=== PATIENT | female | born 1940 | race Caucasian/White ===

== ENCOUNTER 2021-07-18 11:12 | Emergency (ER) | payer MEDICARE, SELFPAY ==
[2021-07-18 11:23] VITALS: BP 121/68; PULSE 83; RESP 16; TEMP 36.3; O2SAT 97; BMI 23.3
--- NOTE | 2021-07-18 11:28 | DI.RAD.S_ITS ---
PROCEDURE: XR KNEE RT 3V INDICATIONS: fall, knee pain and swelling TECHNIQUE: 3 views of the knee were acquired. COMPARISON: [facility], MR, MR KNEE RT W CON, 11/04/2015, 15:31. [facility], CR, XR KNEE 1 OR 2VW RT, 04/01/2016, 9:28. [facility], CR, XR KNEE ARTHRITIC SERIES BI, 10/22/2015, 13:50. FINDINGS: Bones: Medial ann arthroplasty hardware can be seen. There is lucency seen adjacent to both the femoral and tibial component of this arthroplasty hardware, which is best seen laterally. Soft tissues: There is a small to moderate joint effusion. No suspicious soft tissue calcifications. 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 No acute fracture can be seen on these plain films. Dictated by: Kishan Ma M.D. on 07/18/2021 at 10:58 Approved by: Kishan Ma M.D. on 07/18/2021 at 11:01
--- NOTE | 2021-07-18 12:55 | ED_ITS ---
HPI - Extremity Injury (Lower) <Davidson Prater PA-C - Last Filed: 07/18/21 19:26> General Chief Complaint: Extremity Injury, Lower Stated Complaint: right knee pain Time Seen by Provider: 07/18/21 12:00 History of Present Illness HPI Narrative: Patient is a 72-year-old female presenting to the emergency department today for an evaluation of right knee pain. Patient states that she was walking yesterday when her dog ran into her right knee causing the knee to become hyper extended. She explains that she fell but did not hit her head or lose consciousness and denies pain elsewhere. The patient explains that she was able to get up and continue walking but she notes that the pain continued to worsen gradually throughout the day. She explains that her pain has worsened slightly today. Of note, patient had a right medial hemiarthroplasty performed approximately [address] Ruffin at [facility]. Patient states that she has been taking Aleve for the pain and applying ice pack to the right knee, but she notes minimal improvement in her discomfort. She denies chills, fever, chest pain, shortness of breath, cough, abdominal pain, nausea, vomiting, diarrhea, dysuria, back pain, or numbness and tingling throughout the bilateral lower extremities. No other concerns voiced at this time. Related Data Allergies Allergy/AdvReac Type Severity Reaction Status Date / Time azithromycin [From ZITHROMAX] Allergy Unknown Unverified 12/01/17 12:34 codeine [CODEINE] Allergy Unknown Unverified 12/01/17 12:34 Review of Systems <Davidson Prater PA-C - Last Filed: 07/18/21 19:26> Constitutional Constitutional: Denies chills, Denies fatigue, Denies fever(s), Denies frequent falls, Denies lethargy and Denies weakness Eyes Eyes: Denies loss of vision ENT Ears, Nose, Mouth, and Throat: Denies dizziness and Denies neck pain Cardiovascular Cardiovascular: Denies chest pain, Denies irregular heart rhythm, Denies l ightheadedness, Denies palpitations, Denies dyspnea, Denies dyspnea on exertion and Denies orthopnea Respiratory Respiratory: Denies cough, Denies dyspnea, Denies dyspnea on exertion and Denies wheezing Gastrointestinal Gastrointestinal: Denies abdominal pain, Denies change in bowel habits, Denies diarrhea, Denies nausea and Denies vomiting Genitourinary Genitourinary: Denies hematuria, Denies flank pain, Denies urinary incontinence and Denies urinary urgency Musculoskeletal Musculoskeletal: Denies back pain, Reports arthralgias (Right knee), Reports joint swelling (Right knee), Denies muscle weakness, Denies neck pain, Denies numbness and Denies tingling Neurologic Neurologic: Denies behavioral changes, Denies confusion, Denies dizziness, Denie s frequent falls, Denies loss of vision, Denies numbness, Denies tingling and Denies weakness Psychiatric Psychiatric: Denies behavioral changes and Denies confusion Endocrine Endocrine: Denies fatigue and Denies palpitations Allergic/Immunologic Allergic/Immunologic: Denies wheezing Exam <Davidson Prater PA-C - Last Filed: 07/18/21 19:26> Narrative Exam Narrative: GENERAL: 80 year old patient appears stated age. Well-developed patient, in no acute distress. HEAD: Atraumatic. Normocephalic. EYES: Pupils equal round and reactive. Extraocular motions intact. No scleral icterus. No injection or drainage. ENT: Nose without bleeding, purulent drainage. Throat without erythema, tonsillar hypertrophy or exudate. Airway patent. NECK: Trachea midline. Non tender CARDIOVASCULAR: Regular rate and rhythm without murmurs, gallops, or rubs. RESPIRATORY: Clear to auscultation. Breath sounds equal bilaterally. No wheezes, rales, or rhonchi. GASTROINTESTINAL: Abdomen soft, non-tender, nondistended. EXTREMITIES: Swelling along the medial aspect of the knee weight. No significant erythema or warmth appreciated over the right knee. Tenderness to palpation appreciated throughout the medial aspect of the right knee extending distally into the proximal tibia. No significant ecchymosis or deformity noted. No appreciable significant joint laxity. BACK: Nontender without deformity or crepitance. No flank tenderness. NEURO: AOx3. SKIN: No rash or erythema of visible areas Initial Vital Signs Initial Vital Signs: Vital Signs Temperature 97.4 F L 07/18/21 11:23 Pulse Rate 83 07/18/21 11:23 Respiratory Rate 16 07/18/21 11:23 Blood Pressure 121/68 07/18/21 11:23 Pulse Oximetry 97 07/18/21 11:23 Cardio Pulses: dorsalis pedis present bilaterally <DO Macie Kamara Last Filed: 07/19/21 07:14> Initial Vital Signs Initial Vital Signs: Vital Signs Temperature 97.4 F L 07/18/21 11:23 Pulse Rate 83 07/18/21 11:23 Respiratory Rate 16 07/18/21 11:23 Blood Pressure 121/68 07/18/21 11:23 Pulse Oximetry 97 07/18/21 11:23 Course <JEAN MARIE Rico Last Filed: 07/18/21 19:26> Course Course Narrative: Right knee x-ray obtained Orders Ordered: ED Orders 07/18/21 11:28 XR knee RT 3V Stat Vital Signs Vital signs: Vital Signs - 8 hr 07/18/21 11:23 Temperature 97.4 F L Pulse Rate 83 Respiratory Rate 16 Blood Pressure 121/68 Pulse Oximetry 97 <Rafita Clifton DO - Last Filed: 07/19/21 07:14> Orders Ordered: ED Orders 07/18/21 11:28 XR knee RT 3V Stat Vital Signs Vital signs: Vital Signs - 8 hr 07/18/21 11:23 Temperature 97.4 F L Pulse Rate 83 Respiratory Rate 16 Blood Pressure 121/68 Pulse Oximetry 97 MDM - Extremity Injury (Lower) <JEAN MARIE Rico Last Filed: 07/18/21 19:26> Imaging Data Extremity x-ray #1: Radiologist's Impression: PROCEDURE:? XR KNEE RT 3V ? INDICATIONS:? fall, knee pain and swelling ? TECHNIQUE:? 3 views of the knee were acquired.? ? COMPARISON:? [facility], MR, MR KNEE RT W CON, 11/04/2015, 15:31.? [facility], CR, XR KNEE 1 OR 2VW RT, 04/01/2016, 9:28.? [facility], CR, XR KNEE ARTHRITIC SERIES BI, 10/22/2015, 13:50. ? FINDINGS:? ? Bones:? Medial ann arthroplasty hardware can be seen.? There is lucency seen adjacent to both the femoral and tibial component of this arthroplasty hardware, which is best seen laterally. ? Soft tissues:? There is a small to moderate joint effusion.? No suspicious soft tissue calcifications.? ? ? IMPRESSION:? 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 ? No acute fracture can be seen on these plain films. ? ? Dictated by: Kishan Ma M.D. on 07/18/2021 at 10:58 ? ? Approved by: Kishan Ma M.D. on 07/18/2021 at 11:01? [facility] [place] Narrative Medical decision making narrative: Patient is a 72-year-old female presenting to the emergency department today for an evaluation of right knee pain. To consider fracture versus dislocation versus sprain versus strain versus prosthesis loosening versus septic joint. Overall physical examination and history are reassuring as there is no sig nificant warmth about the right knee, patient is able to actively move the joint and the patient's son experience systemic symptoms. Explain the results of the x-ray with the patient and recommended the patient follow-up with [facility]. At this time patient feels comfortable being discharged home. Strict return precautions discussed with patient prior to discharge. Discharge Plan Departure Patient Disposition: Home Clinical Impression: Knee Injury, Acute knee pain Instructions: DI for Knee Pain Activity Restrictions/Additional Instructions: *You have been diagnosed with right knee injury, right knee pain *What to do: *Please continue to take your regular medications as directed. [ ] New medication prescriptions sent to your pharmacy: [ ] [ ] New medication written as a paper prescription [X] No new medications given *Please follow up with your primary care provider in 2-3 days, call for an appointment. Let them know you were seen in the Emergency Department and that we ask that you be seen in follow up. We will electronically transmit a record of today's note if your PCP is in our system. *Please follow-up with [facility] for the earliest available appointment. The office can be reached at . *If you do not have a primary care provider please contact the [facility] Resource line at [phone]. They will ask some questions about your medical history and help get you set up with a doctor in the community. *Return to Emergency Department if you should have any new, worsening or concerning symptoms, such as [fever greater than 101 F, shaking chills, worsening pain, persistent vomiting or other bothersome symptoms] Referrals: Mirtha Gaona MD [Physician] - As soon as possible <Rafita Clifton DO - Last Filed: 07/19/21 07:14> Cosign ED Attending Cosignature Attestation: Dr Clifton Co-Sign Statement: I was available for consultation during this patient's emergency department visit. This chart is signed by myself for administrative purposes only. I did not have direct contact with this patient during this visit. They were seen independently by the APC.
== END 2021-07-18 13:18 | disposition home or self-care (01) ==
PROVIDERS: Emergency Provider Physician Assistant
DX: S89.90XA Unspecified injury of unspecified lower leg, initial encounter (principal); M25.561 Pain in right knee; W54.1XXA Struck by dog, initial encounter; W18.30XA Fall on same level, unspecified, initial encounter
CPT/HCPCS: 73562; 99283